=== PATIENT | female | born 2005 | race Caucasian/White ===

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

== ENCOUNTER 2024-02-28 14:03 | Emergency (ER) | payer OTHER, SELFPAY ==
[2024-02-28 14:05] VITALS: BP 120/75
--- NOTE | 2024-02-28 15:26 | ED.GENMED ---
History of Present Illness
General
Chief Complaint: Headache
Source: patient
Exam Limitations: none
Time Seen by Provider: 02/28/24 15:05
Nursing documentation reviewed up to this point in time: agreed with
History of Present Illness
History of Present Illness:
Patient is a very pleasant 18-year-old female who reports that for 1 week, she was woken up each morning with a headache on the top of her head. Patient reports that it is worse in the morning and gets better as the day goes on. Patient reports
the symptoms are associated with a feeling of dizziness and at times blurred vision. Patient denies fever and sore throat. She denies vomiting. She denies any weakness or numbness. She denies any difficulty speaking or swallowing. She reports
she has never had a headache like this before. Currently, she is experiencing a minimal headache and no dizziness. Patient reports that Tylenol makes the headache better but does not take it away completely.
Past History
Past History
ED Past Medical History: None
ED Past Surgical History: Appendectomy
Social History
Tobacco: Non-smoker
Alcohol: None
Drug: None
Personal: Single
Living: other
Employment: Other
Family History
Family History: Other
Review of Systems
Review of Systems
Allergies reviewed?: Yes
All Other Systems: ROS reviewed and negative except as documented in HPI and ROS
Constitutional: Reports no symptoms
EENT: Reports no symptoms
Respiratory: Reports no symptoms
Cardiac: Reports no symptoms
ABD/GI: Denies nausea
: Reports no symptoms
Musculoskeletal: Reports no symptoms
Skin: Reports no symptoms
Neurological: Reports dizzy and headache
Endocrine: Reports no symptoms
Hematologic/Lymphatic: Reports no symptoms
Psychiatric: Reports no symptoms
Phy Exam
Physical Exam
Physical Exam:
Physical Exam
General: no apparent distress, not acutely ill
Neck: supple. no meningeal signs. normal posterior pharynx
Heart: s1/s2 regular rate and rhythm, no murmur. equal radial pulses.
Lungs: no acute respiratory distress. clear bilaterally
Abdomen: normal bowel sounds. not tender. no CVAT
Neuro: alert and orientedx3. no focal neurological deficits. Steady gait. Extraocular muscles intact. No drift
Skin: no rash
Psychiatric: well kept. interactive and cooperative
Extremities: no edema. no calf tenderness. negative homans. good distal pulses
Course
Orders/Labs/Results
Orders:
Orders
02/28/24 15:15
CT Head W/o Iv Contrast Urgent
Comment:
Reason For Exam: headache
Test Result ONCE
02/28/24 15:31
Urine,Hcg qualitative screen [HCG, Urine Qualitative Screen] Urgent
Date Specimen was Collected: 02/28/24
Time Specimen was Collected: 15:26
Vital Signs
Initial and Last Documented VS:
Initial Vital Signs
Temp Pulse Resp BP Pulse Ox
98.1 F 76 16 120/75 98
02/28/24 14:05 02/28/24 14:05 02/28/24 14:05 02/28/24 14:05 02/28/24 14:05
Last Documented Vital Signs
Temp Pulse Resp BP Pulse Ox
98.1 F 76 16 120/75 98
02/28/24 14:05 02/28/24 14:05 02/28/24 14:05 02/28/24 14:05 02/28/24 14:05
MDM/Problems Addressed
Differential Diagnosis Includes:
Tension headache, migraine headache, benign positional vertigo, dehydration, intracranial mass
MDM/Problems Addressed:
Patient presents with acute headache and dizziness
*Radiology
Radiology exam reviewed: radiology read reviewed
*Pulse Oximetry
Patient hypoxic: no
*EKG
Interpreted by ED Provider?: NA
*Integration Project Manager Interpretation
Rate: Integration Project Manager- N/A
*Critical Care Note
Total Time (30-74mins, 75-104mins- exclusive of procedures): Not Applicable
Data Reviewed
Source: patient
Update Note
Update Note:
Patient remains extremely well and comfortable appearing. She is smiling and walking around steadily. There is no sign of meningitis or subarachnoid hemorrhage. CT looks normal. Patient instructed to continue Tylenol and follow-up with her
primary care doctor
ED Attending Note
-
Portions of this chart may have been created with voice recognition software.� Occasional wrong word or��sound alike� substitutions may have occurred due to the inherent limitations of voice recognition software.
Discharge Plan
Departure
Patient Disposition: Home (Routine Discharge)
Date of Disposition: 02/28/24
Time of Disposition: 17:07
Patient with high blood pressure during this ER visit?: No
Condition: Good
Covid-19: Not Applicable
Discharge Problem:
Headache
Instructions: Headache, Adult (DC)
Prescriptions:
No Action
acetaminophen [acetaminophen] 325 mg tablet
650 mg PO Q4HPRN PRN (Reason: mild pain) Qty: 1 0RF
ibuprofen 200 mg tablet
400 - 600 mg PO Q6HPRN PRN (Reason: moderate pain) Qty: 1 0RF
oxycodone 5 mg tablet
5 mg PO Q4HPRN PRN (Reason: breakthrough/severe pain) Qty: 5 0RF
Referrals:
UNKNOWN - PT DOES,NOT KNOW [Family Provider] -
Interventions
Interventions:
*Risk Screen - Suicide Last Done: 02/28/24 14:57
*General Assessment Last Done: 02/28/24 14:57
*Neglect/Abuse Screening Last Done: 02/28/24 14:57
*ED COVID-19 Vaccine History Last Done: 02/28/24 14:57
ED- Neurological Assessment Last Done: 02/28/24 16:49
Discharge Date and Time
Print Language: JAPANESE
[2024-02-28 15:43] LABS: HCG, Urine Qualitative Screen Negative
[2024-02-28 17:15] VITALS: BP 104/62
[2024-02-28 17:17] VITALS: BP 104/62
== END 2024-02-28 17:18 | disposition home or self-care (01) ==
LOC: EMR 14:03
PROVIDERS: EMERGENCY PHYSICIAN Emergency Medicine
DX: R51.9 Headache, unspecified (principal); R42 Dizziness and giddiness; Z90.49 Acquired absence of other specified parts of digestive tract
CPT/HCPCS: 99284; 70450; 81025

== ENCOUNTER 2024-03-31 16:33 | Emergency (ER) | payer OTHER, SELFPAY ==
[2024-03-31 16:47] VITALS: BP 114/75
--- NOTE | 2024-03-31 16:56 | ED.GENMED ---
History of Present Illness
General
Chief Complaint: Skin Problem
Source: patient and family
Exam Limitations: none
Time Seen by Provider: 03/31/24 16:53
Nursing documentation reviewed up to this point in time: agreed with
History of Present Illness
History of Present Illness:
Otherwise healthy 18-year-old female presenting with concerns of left upper arm rash she is concerned for fungal infection denies any redness warmth fevers or additional concerns ongoing for a few weeks
Past History
Past History
ED Past Medical History: None
ED Past Surgical History: Appendectomy
Social History
Tobacco: Non-smoker
Alcohol: None
Drug: None
Personal: Single
Living: other
Employment: Other
Family History
Family History: Other
Review of Systems
Review of Systems
Allergies reviewed?: Yes
All Other Systems: ROS reviewed and negative except as documented in HPI and ROS
Phy Exam
Physical Exam
Physical Exam:
GENERAL: Alert , in no apparent distress
EYE: pupils equal and reactive
NECK: Supple, no significant adenopathy.
ENT: o/p clr, mmm.
CARDIAC: Regular rate and rhythm .
LUNGS: Clear breath sounds bilaterally, no acute respiratory distress, no wheezes/rales/rhonchi
ABDOMEN: Soft, without focal tenderness, no r/g, no cvat
NEUROLOGICAL: Alert and oriented, no focal neuro deficits
SKIN: 1 cm circular rash scaly borders central clearing to the left upper extremity to the upper arm. Warm and dry, skin intact.
MUSCULOSKELETAL: No edema, well perfused.
PSYCH: Normal and appropriate interaction.
Course
Vital Signs
Initial and Last Documented VS:
Initial Vital Signs
Temp Pulse Resp BP Pulse Ox
98.4 F 68 16 114/75 98
03/31/24 16:47 03/31/24 16:47 03/31/24 16:47 03/31/24 16:47 03/31/24 16:47
Last Documented Vital Signs
Temp Pulse Resp BP Pulse Ox
98.4 F 68 16 114/75 98
03/31/24 16:47 03/31/24 16:47 03/31/24 16:47 03/31/24 16:47 03/31/24 16:47
MDM/Problems Addressed
MDM/Problems Addressed:
18-year-old female presenting with concerns of rash to the left upper extremity appears consistent infection no evidence of secondary bacterial infection or additional concerns. Stable for discharge with topical medication return precautions given.
*Critical Care Note
Total Time (30-74mins, 75-104mins- exclusive of procedures): Not Applicable
ED Attending Note
-
Portions of this chart may have been created with voice recognition software.� Occasional wrong word or��sound alike� substitutions may have occurred due to the inherent limitations of voice recognition software.
Discharge Plan
Departure
Patient Disposition: Home (Routine Discharge)
Date of Disposition: 03/31/24
Time of Disposition: 16:56
Patient with high blood pressure during this ER visit?: No
Condition: Good
Covid-19: Not Applicable
Discharge Problem:
Tinea corporis
Instructions: Ringworm, athlete's foot, and jock itch
Prescriptions:
New
clotrimazole 1 % cream
1 applic topical BID 28 Days Qty: 45 0RF
No Action
acetaminophen [acetaminophen] 325 mg tablet
650 mg PO Q4HPRN PRN (Reason: mild pain) Qty: 1 0RF
ibuprofen 200 mg tablet
400 - 600 mg PO Q6HPRN PRN (Reason: moderate pain) Qty: 1 0RF
oxycodone 5 mg tablet
5 mg PO Q4HPRN PRN (Reason: breakthrough/severe pain) Qty: 5 0RF
Referrals:
Farzad Oropeza MD [Family Provider] -
Activity Restrictions/Additional Instructions:
You came to the emergency department today for concerns of a rash that is consistent with a fungal infection. Please use the clotrimazole twice daily for the next 2 to 4 weeks. Return to the emergency department any worsening, new or concerning
symptoms.
Interventions
Interventions:
*Risk Screen - Suicide Last Done: 03/31/24 16:47
*General Assessment Last Done: 03/31/24 16:47
*Neglect/Abuse Screening Last Done: 03/31/24 16:47
*ED COVID-19 Vaccine History Last Done: 03/31/24 16:47
*Nursing Disposition Last Done: 03/31/24 17:19
ED-Skin Assessment Last Done: 03/31/24 16:47
Discharge Date and Time
Discharge Date/Time: 03/31/24 17:19
Print Language: FRISIAN
== END 2024-03-31 17:19 | disposition home or self-care (01) ==
LOC: EMR 16:33
PROVIDERS: EMERGENCY PHYSICIAN Student in an Organized Health Care Education/Training Program; FAMILY PHYSICIAN Pediatrics
DX: B35.4 Tinea corporis (principal)
CPT/HCPCS: 99282

== ENCOUNTER 2024-06-07 13:20 | Emergency (ER) | payer OTHER, SELFPAY ==
[2024-06-07 13:26] VITALS: BP 104/74
--- NOTE | 2024-06-07 14:44 | ED.GENMED ---
History of Present Illness
General
Chief Complaint: Skin Problem
Source: patient
Exam Limitations: none
Time Seen by Provider: 06/07/24 14:33
Nursing documentation reviewed up to this point in time: agreed with
History of Present Illness
History of Present Illness:
Patient to ED with complaint of painful swelling to left labia after shaving. Denies fever/chills. No prior history of same. Brought to ED by mother for eval.
Past History
Past History
ED Past Medical History: None
ED Past Surgical History: Appendectomy
Social History
Tobacco: Non-smoker
Alcohol: None
Drug: None
Personal: Single
Living: other
Employment: Other
Family History
Family History: Other
Review of Systems
Review of Systems
Allergies reviewed?: Yes
All Other Systems: ROS reviewed and negative except as documented in HPI and ROS
Constitutional: Reports no symptoms
EENT: Reports no symptoms
Respiratory: Reports no symptoms
Cardiac: Reports no symptoms
ABD/GI: Reports no symptoms
: Reports other (small painful abscess left labia)
Musculoskeletal: Reports no symptoms
Skin: Reports no symptoms
Neurological: Reports no symptoms
Psychiatric: Reports no symptoms
Phy Exam
General Physical Exam
General Presentation: well appearing and no apparent distress
General age: appears stated age
General Skin: warm and dry
General Habitus: normal
General Mental: alert
Gastrointestinal Exam
Gastrointestinal Exam: non tender and soft
Genitourinary Exam Female
Exam Female: other (small abscess left labia)
Musculoskeletal Exam
Musculoskeletal Exam: full ROM
Skin Exam
Skin Exam: normal color, warm/dry and no rash
Psychiatric Exam
Psychiatric Exam: normal mood/affect
Course
Orders/Labs/Results
Orders:
Orders
06/07/24 14:43
Cephalexin Monohydrate [Keflex] 500 mg PO NOW STA
Vital Signs
Initial and Last Documented VS:
Initial Vital Signs
Temp Pulse Resp BP Pulse Ox
98.9 F 72 16 104/74 100
06/07/24 13:26 06/07/24 13:26 06/07/24 13:26 06/07/24 13:26 06/07/24 13:26
Last Documented Vital Signs
Temp Pulse Resp BP Pulse Ox
98.9 F 72 16 104/74 100
06/07/24 13:26 06/07/24 13:26 06/07/24 13:26 06/07/24 13:26 06/07/24 13:26
Procedures
Incision/Drainage/Joint Aspiration
Left labia:
Anethesia: 1% Lidocaine with Epi
Preparation: cleaned with Betadine
Type of procedure: incise and drain
Nature of site: abscess
Description of abscess: less than 3cm
How much fluid was obtained?: small amount
Fluid description: cloudy
Treatment: left open for drainage and antibiotics started
*Critical Care Note
Total Time (30-74mins, 75-104mins- exclusive of procedures): Not Applicable
ED Attending Note
-
Portions of this chart may have been created with voice recognition software.� Occasional wrong word or��sound alike� substitutions may have occurred due to the inherent limitations of voice recognition software.
Discharge Plan
Departure
Patient Disposition: Home (Routine Discharge)
Date of Disposition: 06/07/24
Time of Disposition: 14:44
Patient with high blood pressure during this ER visit?: No
Condition: Good
Covid-19: Not Applicable
Discharge Problem:
Abscess of labia
Instructions: Skin abscess drainage - Discharge instructions, Skin Abscess
Prescriptions:
New
cephalexin 500 mg capsule
500 mg PO BID 7 Days Qty: 14 0RF
No Action
acetaminophen [acetaminophen] 325 mg tablet
650 mg PO Q4HPRN PRN (Reason: mild pain) Qty: 1 0RF
ibuprofen 200 mg tablet
400 - 600 mg PO Q6HPRN PRN (Reason: moderate pain) Qty: 1 0RF
oxycodone 5 mg tablet
5 mg PO Q4HPRN PRN (Reason: breakthrough/severe pain) Qty: 5 0RF
clotrimazole 1 % cream
1 applic topical BID 28 Days Qty: 45 0RF
Activity Restrictions/Additional Instructions:
Follow up with your family doctor. return to the emergency department for fever/chills, increasing pain/redness/swelling/drainage or for any further concerns.
Interventions
Interventions:
*Risk Screen - Suicide Last Done: 06/07/24 13:29
*General Assessment Last Done: 06/07/24 13:29
*Neglect/Abuse Screening Last Done: 06/07/24 13:29
ED- Fall Risk Assessment Last Done: 06/07/24 14:31
*ED COVID-19 Vaccine History Last Done: 06/07/24 13:29
Discharge Date and Time
Print Language: NORWEGIAN
[2024-06-07] MEDS: KEFLEX 500 MG PO (15:02)
== END 2024-06-07 15:05 | disposition home or self-care (01) ==
LOC: EMR 13:20
PROVIDERS: EMERGENCY PHYSICIAN Emergency Medicine
DX: N76.4 Abscess of vulva (principal)
CPT/HCPCS: 99283; 10060

== ENCOUNTER 2024-06-26 20:57 | Emergency (ER) | payer OTHER, SELFPAY ==
[2024-06-26 21:00] VITALS: BP 122/81
--- NOTE | 2024-06-26 23:19 | ED.GENMED ---
History of Present Illness
<Alisha Nino PA-C - Last Filed: 06/29/24 08:14>
General
Chief Complaint: Throat Problem
Source: patient
Exam Limitations: none
Time Seen by Provider: 06/26/24 23:11
Nursing documentation reviewed up to this point in time: agreed with
History of Present Illness
History of Present Illness:
pt is a 19 y/o F with no sig history
says that 1 hour [employer] she was eating chicken wing and felt a bone get stuck in her throat
she tried to gag herself and get it out
she feels something in the back of her throat with her fingers
she has not had any voice change, vomiting, eregurgitation; she is able to pass liquids
she has no trouble breathin
g
Past History
<EDWARD Mercer Last Filed: 06/29/24 08:14>
Past History
ED Past Medical History: None
ED Past Surgical History: Appendectomy
Social History
Tobacco: Non-smoker
Alcohol: None
Drug: None
Personal: Single
Living: other
Employment: Other
Family History
Family History: Other
Review of Systems
<EDWARD Mercer Last Filed: 06/29/24 08:14>
Review of Systems
Allergies reviewed?: Yes
All Other Systems: Not applicable
Phy Exam
<EDWARD Mercer Last Filed: 06/29/24 08:14>
Physical Exam
Physical Exam:
GENERAL: Alert , in no apparent distress
NECK: Supple
nontender
normal swallowing
ENT: o/p clr, mmm.
no posterior pharyngeal erythema
normal voce
normal swallowing
tolerating secretions
CARDIAC: Regular rate and rhythm .
LUNGS: Clear breath sounds bilaterally, no acute respiratory distress, no wheezes/rales/rhonchi
SKIN: Warm and dry, skin intact.
PSYCH: Normal and appropriate interaction.
Course
<Alisha Nino PA-C - Last Filed: 06/29/24 08:14>
Orders/Labs/Results
Orders:
Orders
06/26/24 23:16
Neck Soft Tissue [CR Soft Tissue Neck ] Urgent
Comment:
Reason For Exam: feels like chickenbone stuck
06/26/24 23:17
Mag Hydrox/Al Hydrox/Simeth [Maalox] 30 ml Phenobarb/Hyoscy/Atropine/Scop [] 10 ml Viscous Lidocaine 2% [Xylocaine Viscous Cup] 10 ml PO NOW
06/26/24 23:25
Mag Hydrox/Al Hydrox/Simeth [Maalox] 30 ml .ROUTE .STK-MED ONE
Phenobarb/Hyoscy/Atropine/Scop [] 10 ml .ROUTE .STK-MED ONE
06/26/24 23:26
Viscous Lidocaine 2% [Xylocaine Viscous Cup] 15 ml .ROUTE .STK-MED ONE
06/27/24 00:05
CT Neck W/o Iv Contrast Urgent
Reason For Exam: possible neck fb;
Vital Signs
Initial and Last Documented VS:
Initial Vital Signs
Temp Pulse Resp BP Pulse Ox
37.2 C 93 18 122/81 100
06/26/24 21:00 06/26/24 21:00 06/26/24 21:00 06/26/24 21:00 06/26/24 21:00
Last Documented Vital Signs
Temp Pulse Resp BP Pulse Ox
37.2 C 76 18 108/65 100
06/26/24 21:00 06/27/24 01:00 06/27/24 01:00 06/27/24 01:00 06/27/24 01:00
<Chi Richardson MD - Last Filed: 06/27/24 00:57>
Orders/Labs/Results
Orders:
Orders
06/26/24 23:16
Neck Soft Tissue [CR Soft Tissue Neck ] Urgent
Comment:
Reason For Exam: feels like chickenbone stuck
06/26/24 23:17
Mag Hydrox/Al Hydrox/Simeth [Maalox] 30 ml Phenobarb/Hyoscy/Atropine/Scop [] 10 ml Viscous Lidocaine 2% [Xylocaine Viscous Cup] 10 ml PO NOW
06/26/24 23:25
Mag Hydrox/Al Hydrox/Simeth [Maalox] 30 ml .ROUTE .STK-MED ONE
Phenobarb/Hyoscy/Atropine/Scop [] 10 ml .ROUTE .STK-MED ONE
06/26/24 23:26
Viscous Lidocaine 2% [Xylocaine Viscous Cup] 15 ml .ROUTE .STK-MED ONE
06/27/24 00:05
CT Neck W/o Iv Contrast Urgent
Reason For Exam: possible neck fb;
Vital Signs
Initial and Last Documented VS:
Initial Vital Signs
Temp Pulse Resp BP Pulse Ox
37.2 C 93 18 122/81 100
06/26/24 21:00 06/26/24 21:00 06/26/24 21:00 06/26/24 21:00 06/26/24 21:00
Last Documented Vital Signs
Temp Pulse Resp BP Pulse Ox
37.2 C 76 18 108/65 100
06/26/24 21:00 06/27/24 01:00 06/27/24 01:00 06/27/24 01:00 06/27/24 01:00
<Alisha Nino PA-C - Last Filed: 06/29/24 08:14>
MDM/Problems Addressed
Differential Diagnosis Includes:
fb sensation, scratch post pharynx, fb in throat
MDM/Problems Addressed:
19 y/o F
was eating chicken wings and felt herself swallow part of a bone accidentally
she tried gagging herself to bring it up
she feels pain with swallowin luis a dfeels somethign there
she has no distress, no trouble swallowing or regurgitaion of saliva or liquids
voice normal
well apeparing
throat normal
d/w ed attending
pt is asking for xray
aware that the bone will likely not be visualized on xray
but that with her ability to toelate liquids, that she can be discharged to f/u
GI cocktail given
pt's neck soft tissue shows calcificia
tion, likely thyroid cartilage but radiologist cannot b e sure
will ct neck.
<Alisha Nino PA-C - Last Filed: 06/29/24 08:14>
*Critical Care Note
Total Time (30-74mins, 75-104mins- exclusive of procedures): Not Applicable
ED Attending Note
<Alisha Nino PA-C - Last Filed: 06/29/24 08:14>
-
Portions of this chart may have been created with voice recognition software.� Occasional wrong word or��sound alike� substitutions may have occurred due to the inherent limitations of voice recognition software.
<Chi Richardson MD - Last Filed: 06/27/24 00:57>
ED Attending Note
Patient seen and examined by attending physician: Yes
I performed the substantive portion of visit, reviewed & personally made and approve the management plan that is documented in note by myself or URMILA.: Yes
ED Attending Note:
Patient had the sensation of a foreign body stuck in her throat eating chicken. Feels much better at this time. No trouble breathing or swallowing. No shortness of breath.
On exam patient is nontoxic in no distress. Speech is normal. Oral airway is clear. No drooling no stridor. No neck swelling. No crepitus.
Plain x-ray question of foreign body. CT is negative. At this time outpatient observation and follow-up with ENT with persistent symptoms
Discharge Plan
Departure
Patient Disposition: Home (Routine Discharge)
Date of Disposition: 06/27/24
Time of Disposition: 00:56
Patient with high blood pressure during this ER visit?: No
Discharge Problem:
Possible foreign body posterior pharynx
Instructions: Swallowed Objects, Adult (DC)
Prescriptions:
No Action
acetaminophen [acetaminophen] 325 mg tablet
650 mg PO Q4HPRN PRN (Reason: mild pain) Qty: 1 0RF
ibuprofen 200 mg tablet
400 - 600 mg PO Q6HPRN PRN (Reason: moderate pain) Qty: 1 0RF
oxycodone 5 mg tablet
5 mg PO Q4HPRN PRN (Reason: breakthrough/severe pain) Qty: 5 0RF
clotrimazole 1 % cream
1 applic topical BID 28 Days Qty: 45 0RF
cephalexin 500 mg capsule
500 mg PO BID 7 Days Qty: 14 0RF
Referrals:
Rocael Thornton MD [Active] -
UNKNOWN - PT DOES,NOT KNOW [Family Provider] -
Activity Restrictions/Additional Instructions:
If in the morning you still have persistent pain or difficulty swallowing please call the ENT physician listed above for close follow-up
Return immediately with severe pain inability to swallow shortness of breath etc.
Interventions
Interventions:
*Risk Screen - Suicide Last Done: 06/27/24 01:01
*General Assessment Last Done: 06/27/24 00:39
*Neglect/Abuse Screening Last Done: 06/27/24 00:39
*ED COVID-19 Vaccine History Last Done: 06/26/24 21:02
*Nursing Disposition Last Done: 06/27/24 01:01
ED-EENT Assessment Last Done: 06/26/24 22:38
ED- Pulmonary Assessment Last Done: 06/26/24 22:38
Discharge Date and Time
Discharge Date/Time: 06/27/24 01:01
Print Language: HEBREW
[2024-06-26] MEDS: MAALOX 10 PO (23:36)
[2024-06-27 01:00] VITALS: BP 108/65
== END 2024-06-27 01:01 | disposition home or self-care (01) ==
LOC: EMR 20:57
PROVIDERS: EMERGENCY PHYSICIAN Emergency Medicine
DX: R09.A2 Foreign body sensation, throat (principal)
CPT/HCPCS: 99284; 70360; 70490